=== PATIENT | female | born 1955 | race Caucasian/White ===

== ENCOUNTER → 2020-05-06 | Outpatient (CLI) | payer OTHER ==
--- NOTE | 2020-05-18 08:29 | MM ---
Reason for exam: screening (asymptomatic). Last mammogram was performed 5 months ago. History: Benign stereotactic core biopsy of the left breast, 2018. Physical Findings: A clinical breast exam by your physician is recommended on an annual basis and results should be correlated with mammographic findings. MG Screening Mammo w CAD Bilateral CC and MLO view(s) were taken. Prior study comparison: December 05, 2019, mammogram, performed at [facility]. December 02, 2019, mammogram, performed at [facility]. The breast tissue is extremely dense which could obscure a lesion on mammography. Previous mammotome biopsy in the left breast. No significant changes when compared with prior studies. ASSESSMENT: Benign, BI-RAD 2 RECOMMENDATION: Routine screening mammogram of both breasts in 1 year.
== END | disposition home or self-care (01) ==
LOC: RADMAMWWP 13:09
PROVIDERS: ATTEND Physician Assistant Medical
DX: Z12.31 Encounter for screening mammogram for malignant neoplasm of breast (principal)
CPT/HCPCS: 77067

== ENCOUNTER → 2021-05-12 | Outpatient (CLI) | payer MEDICARE ==
--- NOTE | 2021-05-17 11:33 | MM ---
Reason for exam: screening (asymptomatic). Last mammogram was performed 1 year ago. History: Benign stereotactic core biopsy of the left breast, 2018. Physical Findings: A clinical breast exam by your physician is recommended on an annual basis and results should be correlated with mammographic findings. MG 3D Screening Mammo W/Cad Bilateral CC and MLO view(s) were taken. Prior study comparison: May 06, 2020, bilateral MG screening mammo w CAD. December 05, 2019, mammogram, performed at [facility]. The breast tissue is extremely dense which could obscure a lesion on mammography. There are benign appearing round calcifications bilaterally. Previous mammotome biopsy in the left breast. There is no discrete abnormality. ASSESSMENT: Benign, BI-RAD 2 RECOMMENDATION: Routine screening mammogram of both breasts in 1 year.
== END | disposition home or self-care (01) ==
LOC: RADMAMWWP 12:50
PROVIDERS: ATTEND Family Medicine
DX: Z12.31 Encounter for screening mammogram for malignant neoplasm of breast (principal)
CPT/HCPCS: 77063; 77067

== ENCOUNTER → 2021-10-13 | Outpatient (CLI) | payer MEDICARE ==
--- NOTE | 2021-10-13 19:49 | BD ---
EXAMINATION TYPE: Axial Bone Density DATE OF EXAM: 10/13/2021 COMPARISON: NONE CLINICAL HISTORY: 66 years year old Female. ICD-10 CODE: M8589 OT DISRD OF BONE DENSITY AND STRUCTURE, MUL Height: 66 Weight: 149 FRAX RISK QUESTIONS: Glucocorticoids (More than 3mos): NOT FOR 3 MOS CONTINUOUSLY (Ex: prednisone, prednisolone, methylprednisolone, dexamethasone, and hydrocortisone). RISK FACTORS HISTORY OF: Postmenopausal woman: YES, 51 YRS Hyperparathyroidism: NO Adrenal Insufficiency: NO MEDICATIONS: Prednisone or other steroids: YES, ON AND OFF FOR PAIN AND INJURIES, TENNIS ELBOW Additional Medications: VIT D, Additional History: TENDONITIS, SCOLIOSIS, EXAM MEASUREMENTS: Bone mineral densitometry was performed using the [employer]. Bone mineral density as measured about the Lumbar spine is: ----- L1-L4(G/cm2): 0.971 T Score Values are as follows: ----- L1: -2.7 ----- L2: -2.9 ----- L3: -1.0 ----- L4: -0.9 ----- L1-L4: -1.7 Bone mineral density FIRST DEXA AT [facility] Bone mineral density about the R hip (g/cm2): 0.935 Bone mineral density about the L hip (g/cm2): 0.922 T Score values are as follows: -----R Neck: -0.9 -----L Neck: -1.2 -----R Total: -0.6 -----L Total: -0.7 Bone mineral density IS HER FIRST AT [facility] FRAX%s: The graph provided illustrates a 8.3% chance for a major osteoporotic fx and a 0.8% chance fo r the hips probability for fx in 10 years time. IMPRESSION: Osteopenia (T Score between -2.5 and -1). There is slightly increased risk of fracture and the patient may be considered for treatment. Re-Screen 2-5 years. NOTE: T-SCORE=SD OF THE YOUNG ADULT MEAN.
== END | disposition home or self-care (01) ==
LOC: RADBDWWP 10:21
PROVIDERS: ATTEND Family Medicine
DX: M85.89 Other specified disorders of bone density and structure, multiple sites (principal)
CPT/HCPCS: 77080

== ENCOUNTER → 2021-11-08 | Outpatient (CLI) | payer MEDICARE ==
--- NOTE | 2021-11-08 15:56 | XR ---
Thoracic spine and lumbar spine HISTORY: Back pain 3 views of the thoracic spine and 3 views of the lumbar spine submitted Thoracic vertebral bodies show preserved height and bone mineralization. There is a dextroscoliosis c entered at T8 with compensatory curve in the lumbar spine convex left centered at L2. Rotatory compon ent is present. There is multilevel spondylosis. Loss of disc height is present intervertebral levels at multiple levels including L2-3 and the midthoracic spine level. Degenerative disc disease is also noted in the cervical spine. Sclerosis present in the posterior elements of the lumbar spine is cons istent with facet arthropathy. IMPRESSION: Scoliosis, degenerative disc disease, facet arthropathy.
== END | disposition home or self-care (01) ==
LOC: RADXRMAIN 15:08
PROVIDERS: ATTEND Family Medicine
DX: M41.84 Other forms of scoliosis, thoracic region (principal); M41.86 Other forms of scoliosis, lumbar region; M47.816 Spondylosis without myelopathy or radiculopathy, lumbar region; M51.36 Other intervertebral disc degeneration, lumbar region; M51.34 Other intervertebral disc degeneration, thoracic region; M50.30 Other cervical disc degeneration, unspecified cervical region
CPT/HCPCS: 72072; 72100

== ENCOUNTER → 2021-11-29 | Outpatient (CLI) | payer MEDICARE ==
--- NOTE | 2021-11-30 01:12 | MR ---
EXAMINATION TYPE: MR tspine/lspine wo con DATE OF EXAM: 11/29/2021 COMPARISON: None HISTORY: Disc degeneration, scoliosis, pain, limited movement, stiffness Multiplanar multiecho imaging of the thoracic and lumbar spine without contrast. Thoracic spine There is a midthoracic mild to moderate dextroscoliosis deformity. No compression fracture. There is mild spurring in the midthoracic spine. No evidence of focal bone destruction. The thoracic spinal co rd shows normal signal pattern. No edema. No evidence of thoracic spinal stenosis. The posterior [place] ents are intact. There is no thoracic paraspinal mass. Lumbar spine. There is a mild thoracolumbar levoscoliotic deformity. There is mild degenerative disc space narrowin g from L2 to L5. There is spurring of the endplates. There is developmentally large spinal canal and no significant spinal stenosis. The sacroiliac joints appear intact. There is no lumbar paraspinal ma ss. Facet joints are intact. No evidence of lumbar focal bone destruction. There is bilateral L3-4 ne ural foraminal narrowing due to disc space narrowing and facet arthropathy. This is also present at L 2-3. IMPRESSION: Thoracic scoliotic deformity. No thoracic disc herniation or spinal stenosis. No fracture. Lumbar scoliotic deformity. No evidence of any significant lumbar disc herniation or spinal stenosis. There is mild neural foraminal narrowing bilaterally at L2-3 and L3-4 due to disc space narrowing an d facet arthropathy. No fracture.
== END | disposition home or self-care (01) ==
LOC: RADMRIMAIN 06:45
PROVIDERS: ATTEND Physician Assistant
DX: M41.84 Other forms of scoliosis, thoracic region (principal); M41.86 Other forms of scoliosis, lumbar region; M99.73 Connective tissue and disc stenosis of intervertebral foramina of lumbar region; M47.816 Spondylosis without myelopathy or radiculopathy, lumbar region
CPT/HCPCS: 72146; 72148

== ENCOUNTER → 2022-09-23 | Outpatient (CLI) | payer MEDICARE ==
--- NOTE | 2022-09-26 16:29 | MM ---
Reason for Exam: Screening (asymptomatic). Last mammogram was performed 1 year(s) and 5 month(s) ago. Patient History: Menarche at age 16. First Full-Term at age 22. Hysterectomy at age 31. 2018, Benign Stereotactic Core Biopsy on the left side. Risk Values: Alondra 5 year model risk: 1.6%. NCI Lifetime model risk: 5.8%. Prior Study Comparison: 12/05/2019 Screening Mammogram, [facility]. 05/06/2020 Bilateral Screening Mammogram, [facility]. 05/12/2021 Bilateral Screening Mammogram, [facility]. Tissue Density: The breast tissue is extremely dense which could obscure a lesion on mammography. Findings: Analyzed By CAD. Pattern appears symmetrical and stable. Core marker is within the left breast. Benign calcifications within the left breast. A benign calcifications within the right breast. No suspicious groups of microcalcifications, spiculated or lobular masses, architectural distortion or other secondary signs of malignancy are mammographically apparent. Overall Assessment: Benign, BI-RAD 2 Management: Screening Mammogram of both breasts in 1 year. A negative mammogram report should not preclude additional follow up of suspicious palpable abnormalities. Patient should continue monthly self breast exam. A clinical breast exam by your physician is recommended on an annual basis and results should be correlated with mammographic findings. Electronically signed and approved by: Duncan Pop D.O. Radiologis
== END | disposition home or self-care (01) ==
LOC: RADMAMWWP 10:21
PROVIDERS: ATTEND Family Medicine
DX: Z12.31 Encounter for screening mammogram for malignant neoplasm of breast (principal)
CPT/HCPCS: 77067

== ENCOUNTER → 2023-09-07 | Outpatient (CLI) | payer MEDICARE ==
[2023-09-07 18:32] LABS: African American GFR (CKD) >90 (>60 ml/min/1.73 sqM); Blood Urea Nitrogen 16 mg/dL (7-17); Non-African American GFR(CKD) >90 (>60 ml/min/1.73 sqM)
--- NOTE | 2023-09-09 11:07 | CT ---
EXAMINATION TYPE: CT abdomen pelvis w con DATE OF EXAM: 09/07/2023 HISTORY: Right side abdominal pain, hernia surgery x [address] DLP: 456.6mGycm Automated Exposure Control for Dose Reduction was Utilized. CONTRAST: CT scan of the abdomen and pelvis is performed with IV Contrast, patient injected with 100m l mL of Isovue 300. COMPARISON: None FINDINGS: LUNG BASES: No acute process. LIVER: No suspicious findings. BILIARY: No significant abnormality is appreciated. PANCREAS: No significant abnormality is seen. SPLEEN: No splenomegaly or focal lesions. ADRENALS: No nodules. KIDNEYS: No acute process. BOWEL: Bowel dilation. No inflammation. ANTERIOR ABDOMINAL WALL: Intact. VASCULATURE: No acute findings. LYMPH NODES: No greater than 1cm abdominal or pelvic lymph nodes are appreciated. PELVIC VISCERA: No gross abnormality seen. Urinary bladder unremarkable. OSSEOUS STRUCTURES: No significant abnormality is seen. IMPRESSION: No significant acute CT finding to account for patient symptoms.
== END | disposition home or self-care (01) ==
LOC: RADCTMAIN 16:44
PROVIDERS: ATTEND Family Medicine
DX: R63.4 Abnormal weight loss (principal); R10.11 Right upper quadrant pain; R10.31 Right lower quadrant pain
CPT/HCPCS: 82565; 84520; 74177; 36415; Q9967

== ENCOUNTER 2023-10-12 09:24 | Day surgery (SDC) | payer MEDICARE ==
[2023-10-12] MEDS: LACTATED RINGERS 1,000 ML IV ONE (10:00)
[2023-10-12 10:12] VITALS: RESP 16; TEMP 97.6
[2023-10-12] MEDS ORDERED: LIDOCAINE 1% INJ 10MG/ML (20 ML MDV) ONE (10:34)
[2023-10-12] MEDS ORDERED: PROPOFOL 10 MG/ML 20 ML VIAL IV ONE (10:34)
--- NOTE | 2023-10-12 10:44 | P.PCN ---
Date of Procedure: 10/12/23 Procedure(s) Performed: BRIEF HISTORY: Patient is a 68-year-old pleasant white female scheduled for an upper endoscopy as a part of evaluation of right upper quadrant abdominal pain for the last 2 months duration. PROCEDURE PERFORMED: Esophagogastroduodenoscopy with biopsy. PREOPERATIVE DIAGNOSIS: Right upper quadrant abdominal pain IV sedation per anesthesia. PROCEDURE: After informed consent was obtained, the patient was brought into the endoscopy unit. IV sedation was administered by Anesthesia under continuous monitoring. Initially the Olympus GIF-140 video endoscope was inserted into the mouth. Esophagus intubated without any difficulty. It was gradually advanced into the stomach and duodenum and carefully examined. The bulb and the second part of the duodenum appeared normal. The scope at this time was withdrawn to the stomach, adequately insufflated with air, and upon careful examination, mucosa of the antrum, Had a 5 mm ulcer that was biopsied. There was mild antral gastritis noted. Rest of thebody, cardia and the fundus appeared normal. The scope was then withdrawn into the esophagus. The GE junction was located at 39 cm from the incisors. It appeared irregular.The esophagus appeared normal. There were no erosions or ulcerations seen and the patient tolerated the procedure well. IMPRESSION: 1. 5 mm antral ulcer status post biopsy 2. Small hiatal hernia. RECOMMENDATIONS: The findings of this examination were discussed with the patient as well as a family. She was advised to follow with the biopsy results. Trial of Prilosec 20 mg daily for 3 months she was advised advised to avoid NSAIDs.
[2023-10-12 11:43] VITALS: BP 131/86; PULSE 81
== END 2023-10-12 11:45 | disposition home or self-care (01) ==
LOC: ORWHC2ENDO 09:24
PROVIDERS: ATTEND Internal Medicine Gastroenterology
DX: K29.50 Unspecified chronic gastritis without bleeding (principal); K31.9 Disease of stomach and duodenum, unspecified; K25.9 Gastric ulcer, unspecified as acute or chronic, without hemorrhage or perforation; K44.9 Diaphragmatic hernia without obstruction or gangrene; Z79.899 Other long term (current) drug therapy
CPT/HCPCS: 88305; 43239; J2001; J2704

== ENCOUNTER 2024-02-14 11:02 | Day surgery (SDC) | payer MEDICARE ==
[2024-02-14] MEDS ORDERED: LIDOCAINE 1% (10MG/ML) FOR IV START INTRADERMA PRN (11:21)
[2024-02-14 11:31] VITALS: TEMP 98.6
[2024-02-14] MEDS: LACTATED RINGERS 1,000 ML IV SCH (11:34)
[2024-02-14] MEDS: IV FLUID CONTINUATION 1,000 ML IV ONE ×2 (11:34→12:22)
[2024-02-14] MEDS ORDERED: PROPOFOL 10 MG/ML 20 ML VIAL IV ONE (12:23)
[2024-02-14] MEDS ORDERED: LIDOCAINE 1% INJ 10MG/ML (20 ML MDV) ONE (12:23)
--- NOTE | 2024-02-14 12:38 | P.PCN ---
Date of Procedure: 02/14/24 Procedure(s) Performed: BRIEF HISTORY: Patient is a 68-year-old pleasant white female scheduled for an elective colonoscopy as a part of evaluation of right lower quadrant abdominal pain for the last several months duration. Significant change in bowel habits or rectal bleeding. PROCEDURE PERFORMED: Colonoscopy. PREOPERATIVE DIAGNOSIS: Lower abdominal pain. IV sedation per Anesthesia. PROCEDURE: After informed consent was obtained, the patient, was brought into the endoscopy unit. IV sedation was administered by Anesthesia under continuous monitoring. Digital rectal examination was normal. Initially the Olympus CF-160 flexible video colonoscope was then inserted in the rectum, gradually advanced into the cecum without any difficulty. Careful examination was performed as the scope was gradually being withdrawn. Ileocecal valve and the appendiceal orifice were visualized and appeared normal. Prep was excellent. Mucosa of the cecum, ascending colon, transverse colon, descending colon, sigmoid colon, and rectum appeared normal. Retroflexion was performed in the rectum and small internal hemorrhoids were seen. The patient tolerated the procedure well. IMPRESSION: Normal-appearing colon from rectum to cecum with no evidence of colorectal neoplasia. Small internal hemorrhoids. RECOMMENDATIONS: Findings of this examination were discussed with the patient as well as her family. She was advised to have repeat screening colonoscopy in 10 years..
[2024-02-14 12:48] VITALS: RESP 16
[2024-02-14 12:57] VITALS: BP 129/74; PULSE 69
== END 2024-02-14 13:20 | disposition home or self-care (01) ==
LOC: ORWHC2ENDO 11:02
PROVIDERS: ATTEND Internal Medicine Gastroenterology
DX: K64.8 Other hemorrhoids
CPT/HCPCS: 45378

== ENCOUNTER → 2024-12-09 | Outpatient (CLI) | payer MEDICARE ==
--- NOTE | 2024-12-09 09:45 | MM ---
Reason for Exam: Screening (asymptomatic). Last mammogram was performed 2 year(s) and 2 month(s) ago. Patient History: Menarche at age 16. First Full-Term at age 22. Hysterectomy at age 31. 2018, Benign Stereotactic Core Biopsy on the left side. Risk Values: Alondra 5 year model risk: 1.6%. NCI Lifetime model risk: 5.4%. Prior Study Comparison: 05/06/2020 Bilateral Screening Mammogram, [facility]. 05/12/2021 Bilateral Screening Mammogram, [facility]. 09/23/2022 Bilateral MG screening mammo w CAD, [facility]. Tissue Density: The breasts are extremely dense, which lowers the sensitivity of mammography. Findings: Analyzed By CAD. Left breast biopsy clip. Right breast: There is no suspicious group of microcalcifications or new suspicious mass. Left breast: There is no suspicious group of microcalcifications or new suspicious mass. Overall Assessment: Benign, BI-RAD 2 Management: Screening Mammogram of both breasts in [address] [facility] will attempt to contact patient to return for supplemental views and ultrasound if indicated. Patient should continue monthly self-breast exams. A clinical breast exam by your physician is recommended on an annual basis. This exam should not preclude additional follow-up of suspicious palpable abnormalities. Note on Alondra scores and lifetime risk: 1. A Alondra score greater than 3% is considered moderate risk. If this is the case, consider specialist referral to assess eligibility for a risk reducing agent. 2. If overall lifetime risk for the development of breast cancer is 20% or higher, the patient may qualify for future screening with alternating mammogram and breast MRI. [facility], , 12/09/2024 9:42 AM. Electronically signed and approved by: Roberto Harvey DO
== END | disposition home or self-care (01) ==
LOC: RADMAMWWP 08:55
PROVIDERS: ATTEND Family Medicine
DX: Z12.31 Encounter for screening mammogram for malignant neoplasm of breast (principal); R92.343 Mammographic extreme density, bilateral breasts
CPT/HCPCS: 77063; 77067